=== PATIENT | male | born 1970 | race Caucasian/White ===

== ENCOUNTER 2021-07-22 00:12 | Emergency (ER) | payer SELFPAY ==
[~2021-07-22] VITALS: Ht 188 cm; Wt 114.0 kg
--- NOTE | 2021-07-22 00:32 | ED Integumentary General ---
General Chief Complaint: Skin/Wound Problems Stated Complaint: STEPPED ON STAPLE,WANTS TETANUS SHOT Source: patient Exam Limitations: no limitations History of Present Illness Date Seen by Provider: Jul 22, 2021 Time Seen by Provider: 00:23 Initial Comments Patient is a 50-year-old male who presents to the emergency room tonight after stepping on a "valeria nail" about 30 minutes prior to arrival. Patient states it did not bleed very much but he did make it bleed a little bit. He denies any complaints otherwise of recent illness or injury. He recently moved to the area and does not have a primary care physician. Last tetanus shot was about 10 years ago. Patient states he is not a diabetic but has been diagnosed in the past with high cholesterol. Patient desires a tetanus shot as it has been so long since he had 1. All other review of systems reviewed and negative except as stated. Timing/Duration: just prior to arrival Severity: mild Location: extremities Associated Symptoms: denies symptoms Allergies and Home Medications Allergies Coded Allergies: No Known Drug Allergies (Unverified , 07/22/21) Patient Home Medication List Home Medication List Reviewed: Yes Review of Systems Review of Systems Constitutional: see HPI EENTM: no symptoms reported Respiratory: no symptoms reported Cardiovascular: no symptoms reported Skin: other (puncture wound left foot) Physical Exam Vital Signs Capillary Refill : General Appearance: WD/WN, no apparent distress HEENT: PERRL/EOMI Neck: normal inspection Cardiovascular: regular rate, rhythm Respiratory: lungs clear, normal breath sounds, no respiratory distress, no accessory muscle use Extremities: normal range of motion Neurologic/Psychiatric: alert Skin: normal color, warm/dry, other (Patient points to the ball of his left foot as the site of the puncture. No visible puncture is noted. Mildly tender to palpation across the ball of the foot.) Departure Impression Primary Impression: Puncture wound of left foot Qualified Codes: S91.332A - Puncture wound without foreign body, left foot, initial encounter Disposition: HOME, SELF-CARE Condition: Stable Departure-Patient Inst. Decision time for Depature: 00:31 Referrals: [facility] [place],LOCAL PHYSICIAN (PCP) Primary Care Physician Patient Instructions: LOCAL PHYSICIAN LIST Add. Discharge Instructions: Keep the area of the puncture site clean and dry, you can wash normally with soap and water. If you notice any redness, swelling, drainage from the area of the wound please come back to the emergency room for reevaluation. Otherwise return to the emergency room for any new, concerning or emergent complaints. JEANMARIE IZQUIERDO MD Jul 22, 2021 00:32
[2021-07-22 00:45] VITALS: BP 148/94
[2021-07-22] MEDS ORDERED: TETANUS,DIPTH,PERTUSS P/F (BOOSTRIX) 0.5 ML VIAL IM ONE (00:45)
== END 2021-07-22 00:45 | disposition home or self-care (01) ==
LOC: ER 00:19
DX: S91.332A Puncture wound without foreign body, left foot, initial encounter (principal); Z23 Encounter for immunization; W45.0XXA Nail entering through skin, initial encounter
CPT/HCPCS: 90715; 99284

== ENCOUNTER 2022-11-02 21:45 | Observation (INO) | payer SELFPAY ==
[~2022-11-02] VITALS: Ht 188 cm; Wt 127.2 kg
--- NOTE | 2022-11-02 21:58 | ED Chest Pain ---
General Chief Complaint: Chest Pain Stated Complaint: CHEST PAIN Nursing Triage Note: PT ARRIVAL TO ER VIA PRIVATE VEHICLE FROM HOME WITH COMPLAINT OF CHEST PAIN THAT IS ON AND OFF SINCE YESTERDAY. PATIENT STATES THAT THE PARAMEDICS CAME TO HIS RESIDENCE TODAY AND TOLD HIM HE IS HAVING SOME PVC'S BUT OVERALL LOOKS GOOD FROM THEIR STANDPOINT. PATIENT STATES THAT IT FEELS LIKE HIS HEART STOPS THEN RESTARTS FROM TIME TO TIME. PATIENT CURRENTLY HAS NO PAIN. PATIENT STATES THAT HIS HEART DID HURT REALLY BAD EARLIER WHEN HE CALLED EMS. PATIENT DENIES CARDIAC HISTORY. PATIENT DID HAVE SOME NAUSEA YESTERDAY WHEN THIS ALL STARTED. History of Present Illness Date Seen by Provider: Nov 02, 2022 Time Seen by Provider: 21:55 Initial Comments 52-year-old male with PMH of anxiety, is here with complaints of intermittent retrosternal chest pain which occasionally radiates into his left shoulder. His symptoms started yesterday evening. Today patient was getting concerned because he felt as if his heart beat stopped for a second. Denies fever, shortness of breath, abdominal pain, nausea and vomiting, diaphoresis. Patient does not have any cardiac history. Patient is a non-smoker. Allergies and Home Medications Allergies Coded Allergies: No Known Drug Allergies (Unverified , 07/22/21) Patient Home Medication List Home Medication List Reviewed: Yes Review of Systems Review of Systems Constitutional: no symptoms reported EENTM: No Symptoms Reported Respiratory: No Symptoms Reported Cardiovascular: Chest Pain Gastrointestinal: No Symptoms Reported Genitourinary: No Symptoms Reported Musculoskeletal: no symptoms reported Skin: no symptoms reported Psychiatric/Neurological: No Symptoms Reported Endocrine: No Symptoms Reported Hematologic/Lymphatic: No Symptoms Reported Past Xxlyhnc-Prfpyu-Skpdld Hx Patient Social History Tobacco Use?: No Use of E-Cig and/or Vaping dev: No Substance use?: No Alcohol Use?: No Pt feels they are or have been: No Immunizations Up To Date Influenza Vaccine Up-to-Date: No; Not Current First/Initial COVID19 Vaccinat: NA Second COVID19 Vaccination Koffi: NA Third COVID19 Vaccination Date: NA Physical Exam Vital Signs Vital Signs - First Documented 11/02/22 21:50 Temp 36.5 Pulse 90 Resp 20 B/P (MAP) 171/101 (124) Pulse Ox 98 O2 Delivery Room Air Capillary Refill : Less Than 3 Seconds Height, Weight, BMI Height: '" Weight: lbs. oz. kg; 32.00 BMI Method: General Appearance: No Apparent Distress, WD/WN, Anxious HEENT: PERRL/EOMI Neck: Full Range of Motion Respiratory: Chest Non Tender, Lungs Clear, Normal Breath Sounds, No Accessory Muscle Use, No Respiratory Distress Cardiovascular: Regular Rate, Rhythm, No Edema, No Murmur Gastrointestinal: Normal Bowel Sounds, Non Tender, Soft Neurologic/Psychiatric: Alert, Oriented x3 Skin: Normal Color Progress/Results/Core Measures Results/Orders Lab Results Laboratory Tests Test 11/02/22 21:58 11/02/22 23:28 11/02/22 23:40 Range/Units White Blood Count 12.1 H 4.3-11.0 10^3/uL Red Blood Count 5.97 H 4.30-5.52 10^6/uL Hemoglobin 17.8 H 13.3-17.7 g/dL Hematocrit 51 40-54 % Mean Corpuscular Volume 86 80-99 fL Mean Corpuscular Hemoglobin 30 25-34 pg Mean Corpuscular Hemoglobin Concent 35 32-36 g/dL Red Cell Distribution Width 13.7 10.0-14.5 % Platelet Count 407 H 130-400 10^3/uL Mean Platelet Volume 9.0 9.0-12.2 fL Immature Granulocyte % (Auto) 0 % Neutrophils (%) (Auto) 63 42-75 % Lymphocytes (%) (Auto) 29 12-44 % Monocytes (%) (Auto) 7 0-12 % Eosinophils (%) (Auto) 1 0-10 % Basophils (%) (Auto) 1 0-10 % Neutrophils # (Auto) 7.6 1.8-7.8 10^3/uL Lymphocytes # (Auto) 3.5 1.0-4.0 10^3/uL Monocytes # (Auto) 0.8 0.0-1.0 10^3/uL Eosinophils # (Auto) 0.1 0.0-0.3 10^3/uL Basophils # (Auto) 0.1 0.0-0.1 10^3/uL Immature Granulocyte # (Auto) 0.0 0.0-0.1 10^3/uL Prothrombin Time 13.1 12.2-14.7 SEC INR Comment 0.9 0.8-1.4 Activated Partial Thromboplast Time 26 24-35 SEC D-Dimer 0.18 0.00-0.49 UG/ML Sodium Level 140 135-145 MMOL/L Potassium Level 3.5 L 3.6-5.0 MMOL/L Chloride Level 105 98-107 MMOL/L Carbon Dioxide Level 23 21-32 MMOL/L Anion Gap 12 5-14 MMOL/L Blood Urea Nitrogen 12 7-18 MG/DL Creatinine 1.27 0.60-1.30 MG/DL Estimat Glomerular Filtration Rate 69 BUN/Creatinine Ratio 9 Glucose Level 187 H 70-105 MG/DL Calcium Level 9.3 8.5-10.1 MG/DL Corrected Calcium 9.0 8.5-10.1 MG/DL Magnesium Level 2.3 1.6-2.4 MG/DL Total Bilirubin 0.4 0.1-1.0 MG/DL Aspartate Amino Transf (AST/SGOT) 27 5-34 U/L Alanine Aminotransferase (ALT/SGPT) 39 0-55 U/L Alkaline Phosphatase 85 40-136 U/L Troponin I < 0.028 0.031 H <0.028 NG/ML B-Type Natriuretic Peptide < 10.0 <100.0 PG/ML Total Protein 7.7 6.4-8.2 GM/DL Albumin 4.4 3.2-4.5 GM/DL Procalcitonin 0.02 <0.10 NG/ML Urine Color YELLOW Urine Clarity CLEAR Urine pH 6.0 5-9 Urine Specific [place] 1.025 H 1.016-1.022 Urine Protein NEGATIVE NEGATIVE Urine Glucose (UA) NEGATIVE NEGATIVE Urine Ketones NEGATIVE NEGATIVE Urine Nitrite NEGATIVE NEGATIVE Urine Bilirubin NEGATIVE NEGATIVE Urine Urobilinogen 0.2 < = 1.0 MG/DL Urine Leukocyte Esterase NEGATIVE NEGATIVE Urine RBC (Auto) TRACE-I H NEGATIVE Urine RBC NONE /HPF Urine WBC NONE /HPF Urine Crystals NONE /LPF Urine Bacteria NEGATIVE /HPF Urine Casts NONE /LPF Urine Mucus SMALL H /LPF Urine Culture Indicated NO Urine Opiates Screen NEGATIVE NEGATIVE Urine Oxycodone Screen NEGATIVE NEGATIVE Urine Methadone Screen NEGATIVE NEGATIVE Urine Propoxyphene Screen NEGATIVE NEGATIVE Urine Barbiturates Screen NEGATIVE NEGATIVE Ur Tricyclic Antidepressants Screen NEGATIVE NEGATIVE Urine Phencyclidine Screen NEGATIVE NEGATIVE Urine Amphetamines Screen NEGATIVE NEGATIVE Urine Methamphetamines Screen NEGATIVE NEGATIVE Urine Benzodiazepines Screen NEGATIVE NEGATIVE Urine Cocaine Screen NEGATIVE NEGATIVE Urine Cannabinoids Screen NEGATIVE NEGATIVE My Orders Orders - VIDAL CRESPO MD Ekg Tracing (11/02/22 21:48) Cbc With Automated Diff (11/02/22 21:58) Magnesium (11/02/22 21:58) Chest 1 View, Ap/Pa Only (11/02/22 21:58) Ekg Tracing (11/02/22 21:58) Comprehensive Metabolic Panel (11/02/22 21:58) Protime With Inr (11/02/22 21:58) Partial Thromboplastin Time (11/02/22 21:58) Monitor-Rhythm Ecg Trace Only (11/02/22 21:58) Ed Iv/Invasive Line Start (11/02/22 21:58) Bnp [place] (11/02/22 21:58) Fibrin Degradation Products (11/02/22 21:58) Troponin I [place] (11/02/22 21:58) Aspirin Chewable Tablet (Baby Aspirin Ch (11/02/22 22:00) Drug Screen Stat (Urine) (11/02/22 21:58) Ua Culture If Indicated (11/02/22 21:58) Procalcitonin (Pct) (11/02/22 21:58) Ekg Tracing (11/02/22 23:01) Troponin I [place] (11/02/22 23:01) Medications Given in ED Current Medications Medications Dose Ordered Sig/Keke Route Start Time Stop Time Status Last Admin Dose Admin Aspirin 324 mg ONCE ONCE PO 11/02/22 22:00 11/02/22 22:01 DC 11/02/22 22:17 324 MG Vital Signs/I&O 11/02/22 21:50 Temp 36.5 Pulse 90 Resp 20 B/P (MAP) 171/101 (124) Pulse Ox 98 O2 Delivery Room Air Blood Pressure Mean: 124 Progress Progress Note : Progress Note 1. CHEST PAIN: - CXR: normal - Labs unremarkable except for troponin: 1st undetected, 2nd troponin was 0.031 - ASA 324mg STAT - UA/ UDS negative - EKG x 2 non-ischemic, however on telemetry monitoring patient has occasional PVCs - Since pt has intermittent chest pain lasting for about a minute in the ER, will admit for observation, serial troponin and EKG, and cardiology consult. Discussed with Dr Gunter and accepted for admission for observation. Departure Communication (Admissions) Time/Spoke to Admitting Phy: 00:45 see note Impression Primary Impression: Chest pain Qualified Codes: R07.9 - Chest pain, unspecified Additional Impression: Stable angina Disposition: 30 STILL A PATIENT Condition: Stable Admissions Decision to Admit Reason: Admit from ER (General) Decision to Admit/Date: Nov 03, 2022 Time/Decision to Admit Time: 00:30 Departure-Patient Inst. Referrals: NO,LOCAL PHYSICIAN (PCP/Family) Primary Care Physician VIDAL CRESPO MD Nov 02, 2022 21:58
[2022-11-02] MEDS ORDERED: ASPIRIN 81 MG CHEW (CHILDREN'S ASA) PO ONE (22:00)
[2022-11-02 22:08] LABS: BASOPHILS # (AUTO) 0.1 10^3/uL (0.0-0.1); BASOPHILS % (AUTO) 1 % (0-10); EOSINOPHILS # (AUTO) 0.1 10^3/uL (0.0-0.3); EOSINOPHILS % (AUTO) 1 % (0-10); HEMATOCRIT 51 % (40-54); HEMOGLOBIN 17.8 g/dL (13.3-17.7); LYMPHOCYTES # (AUTO) 3.5 10^3/uL (1.0-4.0); LYMPHOCYTES % (AUTO) 29 % (12-44); MEAN CORPUSCULAR HEMOGLOBIN 30 pg (25-34); MEAN CORPUSCULAR HGB CONC 35 g/dL (32-36); MEAN CORPUSCULAR VOLUME 86 fL (80-99); MONOCYTES # (AUTO) 0.8 10^3/uL (0.0-1.0); MONOCYTES % (AUTO) 7 % (0-12); NEUTROPHILS # (AUTO) 7.6 10^3/uL (1.8-7.8); NEUTROPHILS % (AUTO) 63 % (42-75); PLATELET COUNT 407 10^3/uL (130-400); WHITE BLOOD COUNT 12.1 10^3/uL (4.3-11.0)
[2022-11-02 22:14] LABS: INR 0.9 (0.8-1.4); PROTHROMBIN TIME PATIENT 13.1 SEC (12.2-14.7)
[2022-11-02 22:16] LABS: ALBUMIN 4.4 GM/DL (3.2-4.5); POTASSIUM 3.5 MMOL/L (3.6-5.0)
[2022-11-02 22:17] LABS: CALCIUM 9.3 MG/DL (8.5-10.1)
[2022-11-02 22:19] LABS: TOTAL PROTEIN 7.7 GM/DL (6.4-8.2)
[2022-11-02 22:20] LABS: BILIRUBIN,TOTAL 0.4 MG/DL (0.1-1.0)
[2022-11-02 22:22] LABS: CREATININE SERUM 1.27 MG/DL (0.60-1.30)
[2022-11-02 22:25] LABS: MAGNESIUM 2.3 MG/DL (1.6-2.4)
[2022-11-02 23:45] LABS: BILIRUBIN,URINE NEGATIVE (NEGATIVE); CLARITY,URINE CLEAR; COLOR,URINE YELLOW; GLUCOSE, URINE (UA) NEGATIVE (NEGATIVE); KETONES,URINE NEGATIVE (NEGATIVE); LEUKOCYTE ESTERASE ,URINE NEGATIVE (NEGATIVE); NITRITE,URINE NEGATIVE (NEGATIVE); PROTEIN,URINE NEGATIVE (NEGATIVE)
[2022-11-03 00:06] LABS: AMPHETAMINE SCREEN, URINE NEGATIVE (NEGATIVE); BARBITURATE SCREEN URINE NEGATIVE (NEGATIVE); BENZODIAZEPINES SCREEN URINE NEGATIVE (NEGATIVE); CANNABINOID SCREEN, URINE NEGATIVE (NEGATIVE); COCAINE SCREEN URINE NEGATIVE (NEGATIVE); METHADONE STAT NEGATIVE (NEGATIVE); OPIATE SCREEN URINE NEGATIVE (NEGATIVE); OXYCODONE STAT NEGATIVE (NEGATIVE); PROPOXYPHENE STAT NEGATIVE (NEGATIVE); TRICYCLIC ANTIDEPRESSANTS SCRE NEGATIVE (NEGATIVE)
[2022-11-03 00:07] LABS: BACTERIA,URINE NEGATIVE /HPF
[2022-11-03 01:58] VITALS: BP 152/91
[2022-11-03 02:12] VITALS: BP 152/91
[2022-11-03] MEDS ORDERED: ACETAMINOPHEN 325 MG TABLET PO PRN (02:15)
[2022-11-03] MEDS ORDERED: NITROGLYCERIN 0.4 MG SL TABS BTL 25'S SL PRN (02:15)
[2022-11-03] MEDS ORDERED: CATHETER FLUSH 10 ML SYR IVP PRN (02:15)
[2022-11-03] MEDS ORDERED: MELATONIN 10 MG TABLET PO PRN (02:15)
[2022-11-03] MEDS ORDERED: RT-ALBUTEROL SULF 2.5 MG/3 ML PRE-MIX VIAL INH PRN (02:30)
[2022-11-03 03:37] VITALS: BP 149/89
[2022-11-03 04:28] LABS: BASOPHILS # (AUTO) 0.1 10^3/uL (0.0-0.1); BASOPHILS % (AUTO) 1 % (0-10); EOSINOPHILS % (AUTO) 0 % (0-10); HEMATOCRIT 49 % (40-54); LYMPHOCYTES % (AUTO) 21 % (12-44); MEAN CORPUSCULAR HEMOGLOBIN 30 pg (25-34); MEAN CORPUSCULAR HGB CONC 35 g/dL (32-36); MEAN CORPUSCULAR VOLUME 86 fL (80-99); MEAN PLATELET VOLUME 9.1 fL (9.0-12.2); MONOCYTES # (AUTO) 0.7 10^3/uL (0.0-1.0); MONOCYTES % (AUTO) 7 % (0-12); NEUTROPHILS # (AUTO) 7.1 10^3/uL (1.8-7.8); NEUTROPHILS % (AUTO) 72 % (42-75); PLATELET COUNT 385 10^3/uL (130-400); WHITE BLOOD COUNT 9.9 10^3/uL (4.3-11.0)
[2022-11-03 04:38] LABS: POTASSIUM 3.9 MMOL/L (3.6-5.0)
[2022-11-03 04:40] LABS: CALCIUM 9.2 MG/DL (8.5-10.1)
[2022-11-03 04:44] LABS: CREATININE SERUM 1.09 MG/DL (0.60-1.30)
[2022-11-03] MEDS: CATHETER FLUSH 10 ML SYR IVP SCH ×2 (05:53→13:58)
[2022-11-03 07:57] VITALS: BP 166/100
--- NOTE | 2022-11-03 08:38 | Diagnostic Imaging Report ---
EXAM: CHEST 1 VIEW, AP/PA ONLY INDICATION: Chest pain. COMPARISON: None. FINDINGS: Normal heart size and pulmonary vascularity. No dense consolidation, pleural effusion or pneumothorax. No acute osseous findings. IMPRESSION: Negative chest. Dictated by: Dictated on workstation # [id number]
[2022-11-03] MEDS ORDERED: CATHETER FLUSH 10 ML SYR IV PRN (08:45)
[2022-11-03] MEDS ORDERED: meTOproloL SUCCINATE 50 MG (TOPROL XL) TAB PO SCH (09:00)
[2022-11-03] MEDS ORDERED: ASPIRIN 81 MG CHEW (CHILDREN'S ASA) PO SCH (09:00)
--- NOTE | 2022-11-03 09:13 | Consultation-Cardiology ---
HPI-Cardiology Cardiology Consultation: Date of Consultation 11/03/22 Date of Admission 11/02/22 Attending Physician Rosie Mccall Physician Admitting Physician Admitting Physician: Sammy Gunter MD Attending Physician: Sammy Gunter MD Consulting Physician SERGEY DSOUZA JR, MD HPI: Time Seen by a Provider: 09:07 Chief Complaint: REASON FOR CONSULTATION: Chest pain and abnormal troponin level. I had the pleasure of seeing Eulalio on the medical/surgical unit at [facility] in [place], [place] today. He has no significant past cardiac history. For a number of years he has had palpitations with a sensation of skipped heartbeats. He denies associated complaints. He has not had this evaluated in the past. However, 2 days ago he started having palpitations off and on throughout the day. Yesterday the palpitations persisted and then he started getting a pain in his chest with the palpitations. He denies any other associated complaints. After these went on for several hours yesterday, he called the rescue squad who came in did an evaluation at his home and told him he was having PVCs. He declined being taken to the hospital. Last evening he went to sleep and an hour or 2 later woke up and was still having palpitations and chest pain so he had his drive him to the hospital for further evaluation. He was again found to have PVCs. His initial troponin level was undetectable but overnight, his troponin levels have become borderline positive and are now declining. About 2 hours ago his palpitations resolved. He denies dyspnea, paroxysmal nocturnal dyspnea, orthopnea, lightheadedness, syncope, or ankle edema. Because of the chest pain and abnormal troponin level, a cardiology consultation was requested. Certain portions of this document may have been dictated utilizing voice recognition technology. Inherent to this technology, typographical and grammatical errors may exist. As much as I am diligent to identify and correct these mistakes, some errors may remain in the document. Review of Systems-Cardiology Review of Systems Other comments Review of 10 organ systems is as per the history of present illness, otherwise negative. ZBM-Ootkxk-Vjutmn Hx Patient Social History Marrital Status: Smoking Status: Never a Smoker Have you traveled recently?: No Alcohol Use?: No Pt feels they are or have been: No Past Medical History PMH As described under Assessment. Family Medical History Family Medical History: The patient does not know of any family history of premature coronary artery disease in first-degree relatives. His mother has high cholesterol. Allergies and Home Medications Allergies Coded Allergies: No Known Drug Allergies (Unverified , 07/22/21) Patient Home Medication List Home Medication List Reviewed: Yes Exam Vital Signs Vital Signs Date Time Temp Pulse Resp B/P (MAP) Pulse Ox O2 Delivery O2 Flow Rate FiO2 11/03/22 08:25 Room Air 11/03/22 07:57 37.1 75 18 166/100 (122) 98 Physical Exam General: Alert. No acute distress. Well nourished and appears stated age. He is obese. Eye: Extraocular movements are intact. Conjunctivae are clear. There are no xanthelasma. HENT: Normocephalic. Atraumatic. Carotid pulsations 2/2 without bruits. Neck: Jugular venous pressure does not appear elevated. No thyromegaly appreciated. Respiratory: Lungs are clear to auscultation. Respirations are non-labored. Breath sounds are equal. Symmetrical chest wall expansion. Cardiovascular: Normal rate. Regular rhythm. No murmur. No gallop. Point of maximal impulse is not appear displaced. Good pulses equal in all extremities. No edema. Gastrointestinal: Soft. Normal bowel sounds. Skin: Skin turgor is normal. There is no pallor. Musculoskeletal: No kyphosis or scoliosis appreciated. Neurologic: Alert and oriented to person, place, time. Cranial nerves 3-12 appear grossly intact. The patient has good motor tone strength in the upper and lower extremities bilaterally. Psychiatric: Cooperative. He is anxious. Labs Laboratory Tests Test 11/02/22 21:58 11/02/22 23:28 11/02/22 23:40 11/03/22 04:19 Range/Units White Blood Count 12.1 H 9.9 4.3-11.0 10^3/uL Red Blood Count 5.97 H 5.70 H 4.30-5.52 10^6/uL Hemoglobin 17.8 H 17.0 13.3-17.7 g/dL Hematocrit 51 49 40-54 % Mean Corpuscular Volume 86 86 80-99 fL Mean Corpuscular Hemoglobin 30 30 25-34 pg Mean Corpuscular Hemoglobin Concent 35 35 32-36 g/dL Red Cell Distribution Width 13.7 13.8 10.0-14.5 % Platelet Count 407 H 385 130-400 10^3/uL Mean Platelet Volume 9.0 9.1 9.0-12.2 fL Immature Granulocyte % (Auto) 0 0 % Neutrophils (%) (Auto) 63 72 42-75 % Lymphocytes (%) (Auto) 29 21 12-44 % Monocytes (%) (Auto) 7 7 0-12 % Eosinophils (%) (Auto) 1 0 0-10 % Basophils (%) (Auto) 1 1 0-10 % Neutrophils # (Auto) 7.6 7.1 1.8-7.8 10^3/uL Lymphocytes # (Auto) 3.5 2.0 1.0-4.0 10^3/uL Monocytes # (Auto) 0.8 0.7 0.0-1.0 10^3/uL Eosinophils # (Auto) 0.1 0.0 0.0-0.3 10^3/uL Basophils # (Auto) 0.1 0.1 0.0-0.1 10^3/uL Immature Granulocyte # (Auto) 0.0 0.0 0.0-0.1 10^3/uL Prothrombin Time 13.1 12.2-14.7 SEC INR Comment 0.9 0.8-1.4 Activated Partial Thromboplast Time 26 24-35 SEC D-Dimer 0.18 0.00-0.49 UG/ML Sodium Level 140 140 135-145 MMOL/L Potassium Level 3.5 L 3.9 3.6-5.0 MMOL/L Chloride Level 105 107 98-107 MMOL/L Carbon Dioxide Level 23 22 21-32 MMOL/L Anion Gap 12 11 5-14 MMOL/L Blood Urea Nitrogen 12 12 7-18 MG/DL Creatinine 1.27 1.09 0.60-1.30 MG/DL Estimat Glomerular Filtration Rate 69 83 BUN/Creatinine Ratio 9 11 Glucose Level 187 H 110 H 70-105 MG/DL Calcium Level 9.3 9.2 8.5-10.1 MG/DL Corrected Calcium 9.0 8.5-10.1 MG/DL Magnesium Level 2.3 1.6-2.4 MG/DL Total Bilirubin 0.4 0.1-1.0 MG/DL Aspartate Amino Transf (AST/SGOT) 27 5-34 U/L Alanine Aminotransferase (ALT/SGPT) 39 0-55 U/L Alkaline Phosphatase 85 40-136 U/L Troponin I < 0.028 0.031 H 0.029 H <0.028 NG/ML B-Type Natriuretic Peptide < 10.0 <100.0 PG/ML Total Protein 7.7 6.4-8.2 GM/DL Albumin 4.4 3.2-4.5 GM/DL Procalcitonin 0.02 <0.10 NG/ML Urine Color YELLOW Urine Clarity CLEAR Urine pH 6.0 5-9 Urine Specific [place] 1.025 H 1.016-1.022 Urine Protein NEGATIVE NEGATIVE Urine Glucose (UA) NEGATIVE NEGATIVE Urine Ketones NEGATIVE NEGATIVE Urine Nitrite NEGATIVE NEGATIVE Urine Bilirubin NEGATIVE NEGATIVE Urine Urobilinogen 0.2 < = 1.0 MG/DL Urine Leukocyte Esterase NEGATIVE NEGATIVE Urine RBC (Auto) TRACE-I H NEGATIVE Urine RBC NONE /HPF Urine WBC NONE /HPF Urine Crystals NONE /LPF Urine Bacteria NEGATIVE /HPF Urine Casts NONE /LPF Urine Mucus SMALL H /LPF Urine Culture Indicated NO Urine Opiates Screen NEGATIVE NEGATIVE Urine Oxycodone Screen NEGATIVE NEGATIVE Urine Methadone Screen NEGATIVE NEGATIVE Urine Propoxyphene Screen NEGATIVE NEGATIVE Urine Barbiturates Screen NEGATIVE NEGATIVE Ur Tricyclic Antidepressants Screen NEGATIVE NEGATIVE Urine Phencyclidine Screen NEGATIVE NEGATIVE Urine Amphetamines Screen NEGATIVE NEGATIVE Urine Methamphetamines Screen NEGATIVE NEGATIVE Urine Benzodiazepines Screen NEGATIVE NEGATIVE Urine Cocaine Screen NEGATIVE NEGATIVE Urine Cannabinoids Screen NEGATIVE NEGATIVE Test 11/03/22 08:05 11/03/22 08:06 Range/Units Troponin I < 0.028 <0.028 NG/ML Triglycerides Level 158 H <150 MG/DL Cholesterol Level 330 H < 200 MG/DL LDL Cholesterol Direct 266 H 1-129 MG/DL VLDL Cholesterol 32 5-40 MG/DL HDL Cholesterol 40 40-60 MG/DL Thyroid Stimulating Hormone (TSH) 1.50 0.35-4.94 UIU/ML ECG Impression ECG Comment He has had several electrocardiograms which show sinus rhythm with nonspecific T wave changes. Diagnosis/Problems Diagnosis/Problems (1) Non-ST elevation myocardial infarction (NSTEMI), initial care episode Assessment & Plan: He is having symptoms concerning for unstable angina or possibly a non-ST elevation myocardial infarction. His troponin levels are borderline elevated. He has nonspecific T wave changes on his electrocardiogram with no evidence of a STEMI. His cholesterol level is markedly elevated and he also has elevated blood pressures. I am concerned he may have suffered a type I non-ST elevation myocardial infarction. I recommend further evaluation with an echocardiogram and cardiac catheterization. At this time, he is not sure whether or not he wants a cardiac catheterization. He is concerned about potential complications and also cost. I explained to the patient that if we only treat him with medication, this could be a warning sign of a possible even bigger myocardial infarction in the future. He would like to talk to his and think this over. If he decides to leave without having a cardiac catheterization, I told him I would want him to sign out AGAINST MEDICAL ADVICE. (2) Familial hypercholesterolemia Assessment & Plan: His LDL level is markedly elevated which is consistent with familial hypercholesterolemia. I will start him on high-dose statin medication. (3) Primary hypertension Assessment & Plan: His blood pressure has been elevated here in the hospital. Some of this may be due to anxiety and the chest pain. However, at this point in time, it seems as though he may have hypertension. I will start him on beta- [place]. (4) Palpitations Assessment & Plan: Etiology unclear. There is no evidence of Bcptc-Qiczfohfz-Jgywa, Brugada syndrome, or prolonged or short QT on his resting electrocardiogram. Apparently, the rescue squad told him he was having premature ventricular complexes but we have not seen any on telemetry when I reviewed the monitor. We will continue telemetry. This symptom has now resolv ed. SERGEY DSOUZA JR, MD Nov 03, 2022 09:12
--- NOTE | 2022-11-03 10:07 | History & Physical-Hospitalist ---
History of Present Illness HPI/Chief Complaint Patient is a 52-year-old male with past medical history of hyperlipidemia who presented to the emergency department for chest pain. He states that he has had PVCs for many years and normally they resolve on their own. Yesterday he developed what he believes were PVCs as felt as if his heart was stopping. He also developed some chest pain and left shoulder pain with this. They continued throughout the night and he decided to seek evaluation in the emergency department. He had a negative troponin at first but upon repeat it trended up and he was admitted for observation. He has already been seen by cardiology and they recommended a cardiac cath. He states he is very nervous about this as he does not want a cath and does not want anything inside of his body. He understands that this could ultimately prevent a major heart attack but he is unsure if he could even comply with medications following that If he did end up needing a stent so would prefer not to have one. Source: patient Date Seen 11/03/22 Time Seen by a Provider: 10:07 Attending Physician No,Local Physician PCP Admitting Physician: Sammy Gunter MD Attending Physician: Sammy Gunter MD Referring Physician Date of Admission Nov 03, 2022 at 01:17 Home Medications & Allergies Home Medications Reviewed patient Home Medication Reconciliation performed by pharmacy medication reconciliations civil cadd technician and/or nursing. Patients Allergies have been reviewed. Allergies Allergies Coded Allergies No Known Drug Allergies (Unverified07/22/21) Past [id number] Hx Patient Social History Marrital Status: Tobacco Use?: No Smoking Status: Never a Smoker Use of E-Cig and/or Vaping dev: No Substance use?: No Alcohol Use?: No Pt feels they are or have been: No Immunizations Up To Date First/Initial COVID19 Vaccinat: NA Second COVID19 Vaccination Koffi: NA Tetanus Booster (TDap): Less Than 5 Years Current Status Advance Directives: No Communicates: Verbally Primary Language: Togolese Preferred Spoken Language: Togolese Implanted or Applied Medical D: None Review of Systems Constitutional: see HPI Physical Exam Physical Exam Vital Signs Vital Signs - First Documented 11/02/22 21:50 Temp 36.5 Pulse 90 Resp 20 B/P (MAP) 171/101 (124) Pulse Ox 98 O2 Delivery Room Air Capillary Refill : Less Than 3 Seconds Height, Weight, BMI Height: '" Weight: lbs. oz. kg; 35.98 BMI Method: General Appearance: No Apparent Distress, Anxious, Obese HEENT: PERRL/EOMI, Moist Mucous Membranes Neck: Normal Inspection, Supple Respiratory: Lungs Clear, No Respiratory Distress Cardiovascular: Regular Rate, Rhythm, No Murmur Gastrointestinal: Normal Bowel Sounds, Non Tender, Soft Extremity: Normal Capillary Refill, No Calf Tenderness, No Pedal Edema Neurologic/Psychiatric: Alert, Oriented x3, Normal Mood/Affect Skin: Normal Color, Warm/Dry Results Results/Procedures Labs Laboratory Tests 11/02/22 21:58 11/03/22 04:19 Patient resulted labs reviewed. Assessment/Plan Admission Diagnosis NSTEMI Admission Status: Observation Assessment and Plan NSTEMI HLD HTN Cardiology consulted Elevated troponin with PVCs on EKG Patient refused cath Discussed risks and benefits of cath and also of declining cath- he states he is very scared of the procedure and would understands he could have a large hea rt attack and but still would prefer not to have the cath He is agreeable only to statin therapy, states BP is high here due to anxiety Recommended establishing with PCP for continued care DC home AMA Diagnosis/Problems Diagnosis/Problems (1) Non-ST elevation myocardial infarction (NSTEMI), initial care episode (2) Familial hypercholesterolemia (3) Chest pain Status: Acute Qualifiers: Chest pain type: unspecified Qualified Codes: R07.9 - Chest pain, unspecified Clinical Quality Measures AMI/AHF: ASA po Prior to arrival: JODY Mtz MD Nov 03, 2022 10:07
[2022-11-03] MEDS ORDERED: NS IV 1000 ML 1,000 ML IV ONE (11:00)
[2022-11-03 12:02] VITALS: BP 164/105
[2022-11-03] MEDS ORDERED: ASPI-1238 PO (12:50)
[2022-11-03] MEDS ORDERED: ZINC50TA11 PO (12:50)
[2022-11-03] MEDS ORDERED: IBUP-2473 PO (12:50)
[2022-11-03] MEDS ORDERED: SIMV40TA25 PO (13:03)
--- NOTE | 2022-11-03 13:05 | Discharge Inst-Simple/Standard ---
Discharge Inst-Standard Discharge Medications New, Converted or Re-Newed RX: Transmitted to Pharmacy Patient Instructions/Follow Up Plan of Care/Instructions/FU: Please continue to take your medications as written. Please follow up with your primary care doctor to follow up this hospital stay. Activity as Tolerated: Yes Discharge Diet: Low Fat/Low Cholesterol Return to The Hospital For: Chest pain, shortness of breath, fever, weakness, if you feel you are getting worse. JODY HERNANDEZ MD Nov 03, 2022 13:04
[2022-11-03 14:55] VITALS: BP 164/105
[2022-11-03] MEDS ORDERED: ROSUVASTATIN 20 MG (CRESTOR) TABLET PO SCH (21:00)
== END 2022-11-03 14:01 | disposition home or self-care (01) ==
LOC: EDUNIT# 21:45 → ER 21:47 → 4TH 21:48 → UNDOADMOB 11-03 01:17 → 4TH 11-03 01:17 → UNDODISOB 11-03 14:55
PROVIDERS: ADMIT Internal Medicine; ATTEND Internal Medicine
DX: I21.4 Non-ST elevation (NSTEMI) myocardial infarction (principal); E78.5 Hyperlipidemia, unspecified; I10 Essential (primary) hypertension; E78.01 Familial hypercholesterolemia; Z28.310 Unvaccinated for COVID-19
CPT/HCPCS: 71045; 80048; 80053; 80061; 80306; 81000; 83735; 83880; 84145; 84443; 84484 ×2; 85025 ×2; 85379; 85610; 85730; 93005 ×2; 99283; C8929; G0378; 36415; 93306